=== PATIENT | female | born 1950 | race Caucasian/White ===

== ENCOUNTER 2019-03-28 16:23 | Emergency (ER) | payer MEDICARE, MEDICAID ==
[2019-03-28] MEDS ORDERED: methylPREDNISolone Sodium Succinate 125 MG/2 ML SDV IVPUSH ONE (17:11)
[2019-03-28] MEDS ORDERED: Famotidine 20 MG/2 ML SDV IVPUSH ONE (17:11)
[2019-03-28] MEDS ORDERED: Sodium Chloride 0.9% 10 ML Syringe FLUSH PRN (17:11)
[2019-03-28] MEDS ORDERED: diphenhydrAMINE 50 MG/ML SDV IVPUSH ONE (17:12)
--- NOTE | 2019-03-28 18:47 | EDM.PDOC ---
ED HPI GENERAL MEDICAL PROBLEM - General Chief Complaint: Allergic Reaction Stated Complaint: ALLERGIC REACTION Time Seen by Provider: 03/28/19 16:48 Source of Information: Reports: Patient History Limitations: Reports: No Limitations - History of Present Illness INITIAL COMMENTS - FREE TEXT/NARRATIVE: The patient presents with facial swelling. She woke up with it this morning. The swelling is a little better. This morning it was her lips and the left side of her face. Now it is just the left side of her face. She has no shortness of breath or trouble swallowing. She is on lisinopril. She was not sure if this is an infection because about 6 weeks ago she had multiple teeth pulled for dentures. She has no fever or chills. Onset: Gradual Duration: Hour(s): Location: Reports: Face Severity: Moderate Improves with: Reports: None Worsens with: Reports: None Associated Symptoms: Reports: No Other Symptoms Oral/Mouth Pain Score (Numeric/FACES): 2 - Related Data Allergies Allergy/AdvReac Type Severity Reaction Status Date / Time Sulfa (Sulfonamide Allergy Rash Verified 03/28/19 16:38 Antibiotics) Home Meds: Home Meds predniSONE [Prednisone] 40 mg PO DAILY #10 tablet 03/28/19 [Rx] Past Medical History HEENT History: Reports: None Cardiovascular History: Reports: Hypertension Respiratory History: Reports: None Gastrointestinal History: Reports: None Genitourinary History: Reports: None [employer]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 Neurological History: Reports: None Psychiatric History: Reports: None Endocrine/Metabolic History: Reports: Diabetes, Type II Hematologic History: Reports: None Immunologic History: Reports: None Oncologic (Cancer) History: Reports: None Dermatologic History: Reports: None - Infectious Disease History Infectious Disease History: Reports: None - Past Surgical History Head Surgeries/Procedures: Reports: None Musculoskeletal Surgical History: Reports: Arthroscopic Knee, Arthroscopic Procedure, Joint Replacement Social & Family History - Tobacco Use Smoking Status *Q: Never Smoker - Caffeine Use Caffeine Use: Reports: None - Recreational Drug Use Recreational Drug Use: No ED ROS ALLERGIC REACTION - Review of Systems Review Of Systems: See Below Constitutional: Reports: No Symptoms HEENT: Reports: Other (facial swelling) Respiratory: Reports: No Symptoms Cardiovascular: Reports: No Symptoms Endocrine: Reports: No Symptoms GI/Abdominal: Reports: No Symptoms : Reports: No Symptoms Musculoskeletal: Reports: No Symptoms ED EXAM GENERAL NO PERIP PULSE - Physical Exam Exam: See Below Exam Limited By: No Limitations General Appearance: Alert, No Apparent Distress Ears: Normal External Exam Nose: Normal Inspection Throat/Mouth: Normal Inspection Head: Other (Left sided facial swelling) Neck: Normal Inspection, Supple, Non-Tender Respiratory/Chest: No Respiratory Distress, Lungs Clear, Normal Breath Sounds Cardiovascular: Regular Rate, Rhythm, No Edema, No Murmur GI/Abdominal: Soft, Non-Tender, No Organomegaly, No Mass Course - Vital Signs Last Recorded V/S: Last Vital Signs Temp 99.4 F 03/28/19 16:34 Pulse 107 H 03/28/19 16:34 Resp 20 03/28/19 16:34 BP 147/96 H 03/28/19 16:34 Pulse Ox 100 03/28/19 16:34 - Orders/Labs/Meds Orders: Active Orders 24 hr Category Date Time Status Peripheral IV Care [RC] . DIRECTED Care 03/28/19 17:11 Active Sodium Chloride 0.9% [Saline Flush] Med 03/28/19 17:11 Active 10 ml FLUSH ASDIRECTED PRN Peripheral IV Insertion Adult [OM.PC] Routine Oth 03/28/19 17:11 Ordered Medication Orders Sodium Chloride (Saline Flush) 10 ml FLUSH ASDIRECTED PRN PRN Reason: Keep Vein Open Last Admin: 03/28/19 17:49 Dose: 10 ml Meds: Medications Generic Name Dose Route Start Last Admin Trade Name Freq PRN Reason Stop Dose Admin Sodium Chloride 10 ml 03/28/19 17:11 03/28/19 17:49 Saline Flush FLUSH 10 ml ASDIRECTED PRN Administration Keep Vein Open Discontinued Medications Generic Name Dose Route Start Last Admin Trade Name Freq PRN Reason Stop Dose Admin Diphenhydramine HCl 50 mg 03/28/19 17:12 03/28/19 17:51 Benadryl IVPUSH 03/28/19 17:13 50 mg ONETIME ONE Administration Famotidine 20 mg 03/28/19 17:11 03/28/19 17:54 Pepcid IVPUSH 03/28/19 17:12 20 mg ONETIME ONE Administration Methylprednisolone Sodium Succinate 125 mg 03/28/19 17:11 03/28/19 17:53 Solu-Medrol IVPUSH 03/28/19 17:12 125 mg ONETIME ONE Administration - Re-Assessments/Exams Free Text/Narrative Re-Assessment/Exam: 03/28/19 18:48 I ordered an IV saline lock, solu-medrol 125mg IV, pepcid 20mg IV, and benadryl 50mg IV. She looks a little better. I will have her stop her lisinopril and get her on some steroids. Departure - Departure Time of Disposition: 18:50 Disposition: Home, Self-Care 01 Condition: Good Clinical Impression: Angioedema Qualifiers: Encounter type: initial encounter Qualified Code(s): T78.3XXA - Angioneurotic edema, initial encounter - Discharge Information *PRESCRIPTION DRUG MONITORING PROGRAM REVIEWED*: Not Applicable *COPY OF PRESCRIPTION DRUG MONITORING REPORT IN PATIENT ARON: Not Applicable Prescriptions: predniSONE [Prednisone] 40 mg PO DAILY #10 tablet Referrals: Yumi Sal, PROJECTION ENGINEER [Primary Care Provider] - 1 Week Additional Instructions: Take the prednisone daily for 5 days. Take pepcid 20mg daily for 5 days. Take benadryl 50mg every 6 hours as needed for swelling. Do not take the lisinopril. Follow up with Yumi in 1 week. Sleep with your head up tonight. Please return if you are worse. - My Orders Last 24 Hours: My Active Orders 03/28/19 17:11 Peripheral IV Care [RC] . DIRECTED Sodium Chloride 0.9% [Saline Flush] 10 ml FLUSH ASDIRECTED PRN Peripheral IV Insertion Adult [OM.PC] Routine - Assessment/Plan Last 24 Hours: My Active Orders 03/28/19 17:11 Peripheral IV Care [RC] . DIRECTED Sodium Chloride 0.9% [Saline Flush] 10 ml FLUSH ASDIRECTED PRN Peripheral IV Insertion Adult [OM.PC] Routine
== END 2019-03-28 19:30 | disposition home or self-care (01) ==
LOC: JD.ED 16:23
DX: T78.3XXA Angioneurotic edema, initial encounter (principal); I10 Essential (primary) hypertension; E11.9 Type 2 diabetes mellitus without complications; Z88.2 Allergy status to sulfonamides; Z79.899 Other long term (current) drug therapy; X58.XXXA Exposure to other specified factors, initial encounter
CPT/HCPCS: 96374; 96375; 99283; J1200; J2930; J3490; 99284

== ENCOUNTER → 2021-08-16 | Day surgery (SDC) | payer MEDICARE, MEDICAID ==
[~2021-08-16] MED LIST: Bupivacaine 0.25% 10 ML SDV ONE; Lactated Ringers 1,000 ML IV SCH; Lidocaine 1% 30 ML SDV ONE; Lidocaine 1%/Sod Bicarbonate in NS 8.4% 1 ML Syringe IDERM PRN; Propofol 200 MG/20 ML SDV ONE; Sodium Chloride 0.9% 10 ML Syringe FLUSH PRN; Triamcinolone Acetonide 40 MG/ML 1 ML SDV ONE; ceFAZolin 1 GM Vial ONE; fentaNYL 100 MCG/2 ML SDV ONE
--- NOTE | 2021-08-16 06:54 | PCM.PREANE ---
Preanesthetic Assessment - Procedure Proposed Procedure: right carpal tunnel release with left carpal tunnel steroid injection - Anesthesia/Transfusion/Family Hx Anesthesia History: Prior Anesthesia Without Reaction Family History of Anesthesia Reaction: No Transfusion History: No Prior Transfusion(s) - Review of Systems General: No Symptoms Pulmonary: No Symptoms Cardiovascular: No Symptoms Gastrointestinal: No Symptoms Neurological: No Symptoms Other: Reports: Diabetes, Depression, Anxiety - Physical Assessment NPO Status Date: 08/15/21 NPO Status Time: 19:00 Vital Signs: 107/55 73 96% 98.9 16 Height: 5 ft Weight: 85 kg ASA Class: 3 Mental Status: Alert & Oriented x3 Airway Class: Mallampati = 3 Dentition: Reports: Dentures (partial bottom and full set top) Thyro-Mental Finger Breadths: 3 Mouth Opening Finger Breadths: 3 ROM/Head Extension: Full Lungs: Clear to Auscultation, Normal Respiratory Effort Cardiovascular: Regular Rate, Regular Rhythm - Allergies Allergies/Adverse Reactions: Allergies Allergy/AdvReac Type Severity Reaction Status Date / Time lisinopril Allergy Other Verified 08/15/21 14:26 Sulfa (Sulfonamide Allergy Rash Verified 08/15/21 14:26 Antibiotics) - Blood Blood Available: No - Acknowledgements Anesthesia Type Planned: MAC Pt an Appropriate Candidate for the Planned Anesthesia: Yes Alternatives and Risks of Anesthesia Discussed w Pt/Guardian: Yes Pt/Guardian Understands and Agrees with Anesthesia Plan: Yes PreAnesthesia Questionnaire HEENT History: Reports: Allergic Rhinitis, Cataract Cardiovascular History: Reports: High Cholesterol, Hypertension Respiratory History: Reports: Sleep Apnea Gastrointestinal History: Reports: None Genitourinary History: Reports: Other (See Below) Other Genitourinary History: right renal mass 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 Musculoskeletal History: Reports: Back Pain, Chronic, Other (See Below) Other Musculoskeletal History: low back pain Neurological History: Reports: Neuropathy, Peripheral Psychiatric History: Reports: Anxiety, Depression Endocrine/Metabolic History: Reports: Diabetes, Type II Hematologic History: Reports: None Immunologic History: Reports: None Oncologic (Cancer) History: Reports: None Dermatologic History: Reports: None - Infectious Disease History Infectious Disease History: Reports: None - Past Surgical History Head Surgeries/Procedures: Reports: None Cardiovascular Surgical History: Reports: None Respiratory Surgical History: Reports: None GI Surgical History: Reports: None Female Surgical History: Reports: Tubal Ligation Male Surgical History: Reports: None Endocrine Surgical History: Reports: None Neurological Surgical History: Reports: None Musculoskeletal Surgical History: Reports: Arthroscopic Knee, Arthroscopic Procedure, Carpal Tunnel, Joint Replacement Oncologic Surgical History: Reports: None - SUBSTANCE USE Tobacco Use Status *Q: Never Tobacco User Tobacco Use Within Last Twelve Months: No Second Hand Smoke Exposure: No Days Per Week of Alcohol Use: 0 Recreational Drug Use History: No - HOME MEDS Home Medications: Home Meds Acetaminophen [Tylenol] 650 mg PO Q4H PRN 08/15/21 [History] Albuterol/Ipratropium [DuoNeb 3.0-0.5 MG/3 ML] 1 dose NEB Q6H PRN 08/15/21 [History] Ascorbic Acid [Vitamin C] 1,000 mg PO DAILY 08/15/21 [History] Cholecalciferol (Vitamin D3) [Vitamin D3] 1,000 unit PO DAILY 08/15/21 [History] DULoxetine [Cymbalta] 20 mg PO DAILY 08/15/21 [History] Dextrose [Glucose] 4 - 6 tab PO ASDIRECTED PRN 08/15/21 [History] Docusate Sodium [Colace] 250 mg PO BID 08/15/21 [History] Empagliflozin [Jardiance] 25 mg PO QAM 08/15/21 [History] Evolocumab [Repatha Sureclick] 140 mg SQ Q14D 08/15/21 [History] Famotidine [Pepcid] 20 mg PO DAILY 08/15/21 [History] Fish Oil/Hermosa-3 Fatty Acids [Fish Oil 1,000 MG] 1 gm PO DAILY 08/15/21 [Hi story] Fluticasone/Vilanterol [Breo Ellipta 200-25 MCG Inhalation Kit] 1 puff INH DAILY 08/15/21 [History] Furosemide [Lasix] 40 mg PO DAILY 08/15/21 [History] Hydrochlorothiazide/Losartan [Hyzaar 50-12.5 MG] 1 tab PO DAILY 08/15/21 [History] Insulin Detemir [Levemir] 10 units SQ BID 08/15/21 [History] LORazepam [Lorazepam] 0.5 mg PO QID PRN 08/15/21 [History] Meclizine [Antivert] 12.5 mg PO Q4H PRN 08/15/21 [History] Melatonin 10 mg PO BEDTIME 08/15/21 [History] Multivitamin 1 tab PO DAILY 08/15/21 [History] Sennosides/Docusate Sodium [Senna-S] 2 tab PO BID 08/15/21 [History] Sertraline HCl [Zoloft] 200 mg PO DAILY 08/15/21 [History] amLODIPine Besylate [Norvasc] 10 mg PO DAILY 08/15/21 [History] atorvaSTATin Calcium [Atorvastatin Calcium] 80 mg PO DAILY 08/15/21 [History] busPIRone [Buspar] 15 mg PO QID 08/15/21 [History] metFORMIN [Glucophage] 1,000 mg PO DAILY 08/15/21 [History] traZODone HCl [Trazodone HCl] 100 mg PO BEDTIME 08/15/21 [History] - CURRENT (IN HOUSE) MEDS Current Meds: Current Medications Lactated Ringer's (Ringers, Lactated) 1,000 mls @ 125 mls/hr IV ASDIRECTED BUD Stop: 08/16/21 23:00 Lidocaine/Sodium Bicarbonate (Lidocaine 1%/Sod Bicarbonate In Ns 8.4% 1 Ml Syringe) 0.25 ml IDERM ONETIME PRN PRN Reason: Prior to IV Start Stop: 08/16/21 18:00 Sodium Chloride (Sodium Chloride 0.9% 10 Ml Syringe) 10 ml FLUSH ASDIRECTED PRN PRN Reason: Keep Vein Open Stop: 08/16/21 18:00 Discontinued Medications Bupivacaine HCl (Bupivacaine 0.25% 10 Ml Sdv) Confirm Administered Dose 20 ml .ROUTE .STK-MED ONE Stop: 08/16/21 06:48 Cefazolin Sodium (Cefazolin 1 Gm Vial) Confirm Administered Dose 2 gm .ROUTE .STK-MED ONE Stop: 08/16/21 06:36 Fentanyl (Fentanyl 100 Mcg/2 Ml Sdv) Confirm Administered Dose 100 mcg .ROUTE .STK-MED ONE Stop: 08/16/21 06:36 Propofol (Propofol 200 Mg/20 Ml Sdv) Confirm Administered Dose 200 mg .ROUTE .STK-MED ONE Stop: 08/16/21 06:35
--- NOTE | 2021-08-16 07:51 | PCM48HPAN ---
Post Anesthesia Note - EVALUATION WITHIN 48HRS OF ANESTHETIC Vital Signs in Normal Range: Yes Patient Participated in Evaluation: Yes Respiratory Function Stable: Yes Airway Patent: Yes Cardiovascular Function Stable: Yes Hydration Status Stable: Yes Pain Control Satisfactory: Yes Nausea and Vomiting Control Satisfactory: Yes Mental Status Recovered: Yes Vital Signs: Last Vital Signs Temp 98.9 F 08/16/21 06:30 Pulse 76 08/16/21 06:30 Resp 16 08/16/21 06:30 BP 154/75 H 08/16/21 06:30 Pulse Ox 96 08/16/21 06:30 0745 91 12 97.9 93% 123/65
--- NOTE | 2021-08-16 10:33 | PCM.OPNOTE ---
- General Post-Op/Procedure Note Date of Surgery/Procedure: 08/16/21 Operative Procedure(s): right carpal tunnel release with left carpal tunnel injection Pre Op Diagnosis: bilateral median nerve compression neuropathy Post-Op Diagnosis: Same Anesthesia Technique: Local, MAC Primary Surgeon: Gui Orellana Anesthesia Provider: Sam Fuentes Biochemist: Megha Booker EBL in mLs: 0 Complications: None Condition: Good Free Text/Narrative:: Intake & Output 08/15/21 08/16/21 08/16/21 22:59 06:59 14:59 Intake Total 300 Balance 300
--- NOTE | 2021-08-31 07:06 | OR ---
DATE OF OPERATION: 08/16/2021 SURGEON: Gui Orellana MD OPERATION PERFORMED: Right carpal tunnel release with left carpal tunnel injection. PREOPERATIVE DIAGNOSIS: Bilateral median nerve compression neuropathy. POSTOPERATIVE DIAGNOSIS: Bilateral median nerve compression neuropathy. ANESTHESIA: Local MAC. ANESTHESIA PROVIDER: Sam Fuentes CRNA. ESTIMATED BLOOD LOSS: Less than 5 mL. COMPLICATIONS: None. CONDITION: Stable. DESCRIPTION OF PROCEDURE: The patient was identified in the preop holding area. Proper site was marked and identified by the surgeon. The patient was taken back to the operating theater where after adequate anesthesia, the patient's right upper extremity was sterilely prepped and draped in the usual sterile fashion. OR time-out was performed. The patient did not receive antibiotics and it is not indicated for soft tissue hand procedure. At this time, the right upper extremity was exsanguinated and an Esmarch was used as a tourniquet on the forearm. At this time, using 1% lidocaine without epinephrine and 0.25% Marcaine without epinephrine, the palmar cutaneous branch of the median nerve was anesthetized and then the incisional site was anesthetized using Ricks cardinal line and ulnar border of the fourth digit as reference. Once this had set up, an incision was made. Blunt dissection was taken down to the palmar cutaneous fascia. Palmar cutaneous fascia was incised with a Koi blade. At this time, the transverse carpal ligament was identified. A small rent was made in the transverse carpal ligament with a Koi blade under direct visualization. Resection of the transverse carpal ligament was done distally using tenotomy scissors making sure to stop short of the palmar arch. At this time, attention was turned proximally after it was found to be adequately released. Using the tenotomy scissors keeping the tips ulnar to protect the palmar cutaneous branch of the median nerve, the superficial forearm fascia as well as the transverse carpal ligament were resected proximally. It was found to be adequate release both proximally and distally. At this time, adequate saline was irrigated through the wound. 4-0 nylon sutures were used closure of the skin. The patient was placed in a sterile soft dressing and sent to PACU in stable condition. After this was completed, under sterile technique, 1 mL of 40 mg Kenalog and 2 mL of 0.25% Marcaine were injected in left carpal tunnel. The patient tolerated all procedures well. MMODAL /[id number]
== END | disposition home or self-care (01) ==
LOC: JD.SDS 06:24
PROVIDERS: ATTEND Orthopaedic Surgery
DX: G56.03 Carpal tunnel syndrome, bilateral upper limbs (principal); F32.9 Major depressive disorder, single episode, unspecified; E11.42 Type 2 diabetes mellitus with diabetic polyneuropathy; G47.33 Obstructive sleep apnea (adult) (pediatric); I10 Essential (primary) hypertension; H25.9 Unspecified age-related cataract; F41.1 Generalized anxiety disorder; M54.40 Lumbago with sciatica, unspecified side; N28.89 Other specified disorders of kidney and ureter; E78.41 Elevated Lipoprotein(a); Z98.890 Other specified postprocedural states; Z79.84 Long term (current) use of oral hypoglycemic drugs; Z79.899 Other long term (current) drug therapy; Z88.8 Allergy status to other drugs, medicaments and biological substances; Z88.2 Allergy status to sulfonamides; Z91.040 Latex allergy status; Z79.4 Long term (current) use of insulin
CPT/HCPCS: 20526; 64721; 82947; J0690; J2704; J3010; J3301; J3490; J7120; 01810

== ENCOUNTER 2021-12-20 07:43 | Day surgery (SDC) | payer MEDICARE, MEDICAID ==
[~2021-12-20 07:43] MED LIST changes: -Propofol 200 MG/20 ML SDV ONE; +Sodium Chloride 0.9% 10 ML Syringe FLUSH SCH; -Triamcinolone Acetonide 40 MG/ML 1 ML SDV ONE; -ceFAZolin 1 GM Vial ONE; -fentaNYL 100 MCG/2 ML SDV ONE
[2021-12-20] MEDS ORDERED: fentaNYL 100 MCG/2 ML SDV ONE (08:07)
[2021-12-20] MEDS ORDERED: Propofol 200 MG/20 ML SDV ONE (08:07)
[2021-12-20] MEDS ORDERED: Midazolam 1 MG/ML 2 ML SDV ONE (08:07)
[2021-12-20] MEDS ORDERED: ceFAZolin 1 GM Vial ONE (08:18)
== END 2021-12-20 09:40 | disposition home or self-care (01) ==
LOC: JD.SDS 07:43
PROVIDERS: ATTEND Orthopaedic Surgery
DX: G56.12 Other lesions of median nerve, left upper limb (principal); I10 Essential (primary) hypertension; F41.9 Anxiety disorder, unspecified; F32.A Depression, unspecified; G62.9 Polyneuropathy, unspecified; G47.33 Obstructive sleep apnea (adult) (pediatric); E11.42 Type 2 diabetes mellitus with diabetic polyneuropathy; Z98.890 Other specified postprocedural states; Z79.899 Other long term (current) drug therapy; Z88.2 Allergy status to sulfonamides; Z88.8 Allergy status to other drugs, medicaments and biological substances
CPT/HCPCS: 64721; 82947; J0690; J2250; J2704; J3010; J3490; J7120; 01810

== ENCOUNTER 2022-02-22 11:42 | Emergency (ER) | payer MEDICARE, MEDICAID | END 2022-02-22 15:43 | disposition home or self-care (01) | LOC: JD.ED 11:42 | DX: M54.2 Cervicalgia (principal); R51.9 Headache, unspecified; I10 Essential (primary) hypertension; E11.9 Type 2 diabetes mellitus without complications; E66.9 Obesity, unspecified; Z68.38 Body mass index [BMI] 38.0-38.9, adult; Z88.2 Allergy status to sulfonamides; Z88.8 Allergy status to other drugs, medicaments and biological substances; Z79.899 Other long term (current) drug therapy; Z79.84 Long term (current) use of oral hypoglycemic drugs | CPT/HCPCS: 70450; 70450-26; 72125; 72125-26; 99284-25 ==

== ENCOUNTER → 2022-05-29 | Day surgery (SDC) | payer MEDICARE, MEDICAID ==
[~2022-05-29] MED LIST changes: +Acetaminophen 325 MG Tab PO SCH; -Bupivacaine 0.25% 10 ML SDV ONE; +Bupivacaine 0.5%/EPINEPHrine 1:200,000 50 ML MDV ONE; +Gabapentin 300 MG Cap PO SCH; +HYDROmorphone 0.5 MG/0.5 ML Syringe IVPUSH PRN; +HYDROmorphone 0.5 MG/0.5 ML Syringe ONE; +Ibuprofen 600 MG Tab PO PRN; +Ketorolac 15 MG/ML SDV IVPUSH SCH; -Lidocaine 1% 30 ML SDV ONE; +Lidocaine 1% 5 ML VIAL ONE; +Lidocaine 1% with EPINEPHrine 1:100,000 20 ML MDV ONE; +Neostigmine Methylsulfate 10 MG/10 ML MDV ONE; +Ondansetron 4 MG/2 ML SDV IVPUSH PRN; +Ondansetron 4 MG/2 ML SDV ONE; +Propofol 200 MG/20 ML SDV ONE; +Rocuronium 50 MG/5 ML Vial ONE; +Succinylcholine 200 MG/10 ML MDV ONE; +ceFAZolin 2 GM Vial ONE; +fentaNYL 100 MCG/2 ML SDV IVPUSH PRN; +fentaNYL 100 MCG/2 ML SDV ONE; +traMADol 50 MG Tab PO PRN
== END | disposition home or self-care (01) ==
LOC: JD.SDS 06:56
PROVIDERS: ATTEND Surgery
DX: K80.10 Calculus of gallbladder with chronic cholecystitis without obstruction (principal); E11.42 Type 2 diabetes mellitus with diabetic polyneuropathy; I10 Essential (primary) hypertension; E78.5 Hyperlipidemia, unspecified; G47.33 Obstructive sleep apnea (adult) (pediatric); M48.02 Spinal stenosis, cervical region; J45.909 Unspecified asthma, uncomplicated; F41.9 Anxiety disorder, unspecified; F31.9 Bipolar disorder, unspecified; Z86.16 Personal history of COVID-19; Z98.890 Other specified postprocedural states; Z79.4 Long term (current) use of insulin; Z79.899 Other long term (current) drug therapy; Z79.02 Long term (current) use of antithrombotics/antiplatelets; Z88.2 Allergy status to sulfonamides; Z88.8 Allergy status to other drugs, medicaments and biological substances; Z88.1 Allergy status to other antibiotic agents; Z88.4 Allergy status to anesthetic agent; Z79.84 Long term (current) use of oral hypoglycemic drugs; Z79.83 Long term (current) use of bisphosphonates
CPT/HCPCS: 47562; A9270; J0330; J0690; J1170; J1885; J2405; J2704; J2710; J3010; J3490; J7120

== ENCOUNTER 2023-03-03 10:18 | Day surgery (SDC) | payer MEDICARE, MEDICAID ==
[~2023-03-03 10:18] MED LIST changes: -Acetaminophen 325 MG Tab PO SCH; -Bupivacaine 0.5%/EPINEPHrine 1:200,000 50 ML MDV ONE; +EPINEPHrine 1 MG/ML SDV ONE; -Gabapentin 300 MG Cap PO SCH; -HYDROmorphone 0.5 MG/0.5 ML Syringe IVPUSH PRN; -HYDROmorphone 0.5 MG/0.5 ML Syringe ONE; -Ibuprofen 600 MG Tab PO PRN; -Ketorolac 15 MG/ML SDV IVPUSH SCH; -Lactated Ringers 1,000 ML IV SCH; -Lidocaine 1% with EPINEPHrine 1:100,000 20 ML MDV ONE; -Lidocaine 1%/Sod Bicarbonate in NS 8.4% 1 ML Syringe IDERM PRN; +Midazolam 1 MG/ML 2 ML SDV ONE; -Neostigmine Methylsulfate 10 MG/10 ML MDV ONE; -Ondansetron 4 MG/2 ML SDV IVPUSH PRN; -Rocuronium 50 MG/5 ML Vial ONE; +Ropivacaine 0.5% 5 MG/ML 30 ML SDV ONE; -Sodium Chloride 0.9% 10 ML Syringe FLUSH PRN; -Sodium Chloride 0.9% 10 ML Syringe FLUSH SCH; -Succinylcholine 200 MG/10 ML MDV ONE; -fentaNYL 100 MCG/2 ML SDV IVPUSH PRN; -fentaNYL 100 MCG/2 ML SDV ONE; +fentaNYL 250 MCG/5 ML SDV ONE; -traMADol 50 MG Tab PO PRN
[2023-03-03] MEDS ORDERED: Dexmedetomidine 200 MCG/2 ML SDV ONE (11:15)
[2023-03-03] MEDS ORDERED: Sodium Chloride 0.9% 10 ML Syringe FLUSH PRN (11:37)
[2023-03-03] MEDS ORDERED: Lidocaine 1%/Sod Bicarbonate in NS 8.4% 1 ML Syringe IDERM PRN (11:37)
[2023-03-03] MEDS ORDERED: Lactated Ringers 1,000 ML IV SCH (11:45)
[2023-03-03] MEDS ORDERED: Sodium Chloride 0.9% 10 ML Syringe FLUSH SCH (11:45)
[2023-03-03] MEDS ORDERED: Succinylcholine 200 MG/10 ML MDV ONE (12:45)
[2023-03-03] MEDS ORDERED: Ondansetron 4 MG/2 ML SDV IVPUSH PRN (13:11)
[2023-03-03] MEDS ORDERED: HYDROmorphone 0.5 MG/0.5 ML Syringe IVPUSH PRN (13:11)
[2023-03-03] MEDS ORDERED: fentaNYL 100 MCG/2 ML SDV IVPUSH PRN (13:11)
[2023-03-03] MEDS ORDERED: Lactated Ringers 1,000 ML ONE (13:12)
[2023-03-03] MEDS ORDERED: Ondansetron 4 MG/2 ML SDV ONE (13:29)
[2023-03-03] MEDS: Vancomycin 1 GM SDV ONE ×2 (13:38→14:01)
[2023-03-03] MEDS: Tranexamic Acid 1,000 MG/10 ML Vial ONE ×2 (13:38→14:01)
[2023-03-03] MEDS ORDERED: Phenylephrine 1% 10 MG/ML SDV ONE (13:56)
[2023-03-03] MEDS ORDERED: Acetaminophen/HYDROcodone 325-5 MG Tab PO PRN (14:36)
== END 2023-03-03 16:34 | disposition home or self-care (01) ==
LOC: JD.SDS 10:18 → EDSTATUS 13:45 → JD.SDS 16:34
PROVIDERS: ATTEND Orthopaedic Surgery
DX: M19.011 Primary osteoarthritis, right shoulder (principal); G89.29 Other chronic pain; J45.40 Moderate persistent asthma, uncomplicated; E11.42 Type 2 diabetes mellitus with diabetic polyneuropathy; G47.33 Obstructive sleep apnea (adult) (pediatric); E11.22 Type 2 diabetes mellitus with diabetic chronic kidney disease; I12.9 Hypertensive chronic kidney disease with stage 1 through stage 4 chronic kidney disease, or unspecified chronic kidney disease; N18.9 Chronic kidney disease, unspecified; M81.0 Age-related osteoporosis without current pathological fracture; F41.9 Anxiety disorder, unspecified; F32.A Depression, unspecified; E78.5 Hyperlipidemia, unspecified; E66.9 Obesity, unspecified; Z79.4 Long term (current) use of insulin; Z79.899 Other long term (current) drug therapy; Z79.84 Long term (current) use of oral hypoglycemic drugs; Z88.2 Allergy status to sulfonamides; Z88.8 Allergy status to other drugs, medicaments and biological substances
CPT/HCPCS: 23472; 64415; 76000; 97110; 97161; A9270; C1713; C1769; C1776; J0171; J0330; J0690; J2250; J2370; J2405; J2704; J2795; J3010; J3370; J7120; 01638; 01810; J3490